=== PATIENT | male | born 1990 ===

== ENCOUNTER 2018-08-16 10:17 | Emergency (ER) | payer BC, OTHER ==
[2018-08-16 10:31] VITALS: BP 118/85
--- NOTE | 2018-08-16 11:13 | UC ---
Laceration HPI - HPI Summary HPI Summary: Patient is 27 year old gentleman, who present today to the urgent care with injury to his chin last night at 1 AM. He tripped on his bathroom and hit his chin on the floor and sustained a laceration wound. Last tetanus shot was March 2017. Bleeding was controlled and he denies any other symptoms - History Of Current Complaint Chief Complaint: UCLaceration Stated Complaint: CHIN INJURY Time Seen by Provider: 08/16/18 10:52 Hx Obtained From: Patient Pain Intensity: 4 - Allergies/Home Medications Allergies/Adverse Reactions: Allergies Allergy/AdvReac Type Severity Reaction Status Date / Time No Known Allergies Allergy Verified 08/16/18 10:31 PMH/Surg Hx/FS Hx/Imm Hx - Additional Past Medical History Additional PMH: No significant past medical history Previously Healthy: Yes - Surgical History Surgical History: None - Social History Alcohol Use: Daily Alcohol Amount: 1 or 2 beers Substance Use Type: None Smoking Status (MU): Former Smoker Review of Systems All Other Systems Reviewed And Are Negative: Yes Constitutional: Positive: Negative Skin: Positive: Other - Laceration wound to the right chin Eyes: Positive: Negative ENT: Positive: Negative Respiratory: Positive: Negative Cardiovascular: Positive: Negative Gastrointestinal: Positive: Negative Genitourinary: Positive: Negative Motor: Positive: Negative Neurovascular: Positive: Negative Musculoskeletal: Positive: Negative Neurological: Positive: Negative Psychological: Positive: Negative Is Patient Immunocompromised?: No Physical Exam - Summary Physical Exam Summary: Physical Exam: Const: Appears well. No signs of apparent distress present. Alert and oriented x 3. Musculo: Walks with a normal gait. Head/Face: Atraumatic, normocephalic on inspection. Eyes: EOMI and PERRLA in both eyes. Conjunctivae clear. No discharge noted ENT: Hearing normal, Respiratory: Respirations are unlabored. Lungs clear to auscultation bilaterally, no wheezing , rhonchi or rales noted . CVS: Regular rate and Rhythm, S1S2 normal , no murmurs identified. Extremities: Peripheral circulation is grossly normal. Pulses 2+ Abdomen : Soft non tender , nondistended , Bowel sounds present . No guarding , rebound tenderness or rigidity noted. Skin: chin: 1 inch long 2 mm deep, transverse linear laceration wound. No foreign body identified. No active bleeding or drainage Neuro: Cranial nerves II to XII intact, motor and sensory intact. DTR Intact bilaterally. Mood is normal. Affect is normal. Triage Information Reviewed: Yes Vital Signs: Initial Vital Signs Temp 98.2 F 08/16/18 10:26 Pulse 91 08/16/18 10:26 Resp 16 08/16/18 10:26 BP 118/85 08/16/18 10:26 Pulse Ox 98 08/16/18 10:26 Vital Signs Reviewed: Yes Images Head: 1 - 1 inch long transverse laceration Laceration Repair - Laceration Repair 1 Description: Linear Laceration Size After Repair: Length (cm) - 2 cm, Width (mm) - 3 mm, Depth (mm) - 2 mm Contamination/FB Removal: irrigated, no foreign body Type Injection: Local Anesthesia Used: 2.0% Lido Cleansing Completed Via Routine Prep: Yes Irrigation With Pressure Irrigation Device: Yes Closure Material: Sutures - 6 sutures applied .nylon , 5 - 0 , Closure Method: Single Layer - interrupted Suture Type: Nylon Laceration Course/Dx - Course/Dx Course Of Treatment: During the visit today, laceration wound was closed with 6 interrupted sutures using nylon 5-0 with appropriate closure and hemostasis. Since he injured it last night, plan to cover it with antibiotics. Keflex was prescribed to the pharmacy. He will return for suture removal in one week. . Patient expressed understanding . - Diagnosis Provider Diagnosis: Laceration Discharge - Sign-Out/Discharge Documenting (check all that apply): Patient Departure All imaging exams completed and their final reports reviewed: No Studies - Discharge Plan Condition: Stable Disposition: HOME Prescriptions: Cephalexin CAP* [Keflex CAP*] 500 mg PO BID 5 Days #10 cap Patient Education Materials: Care For Your Stitches (ED), Laceration (ED) Referrals: [facility] Vladimir JOSEPH [Primary Care Provider] - 1 Week Additional Instructions: Please start taking the medication as prescribed to the pharmacy . Care for your sutures Follow up in 1 week for suture removal Return to Urgent care / ER if symptoms get worse. - Billing Disposition and Condition Condition: STABLE Disposition: Home
[2018-08-16] MEDS ORDERED: Lidocaine 2% PF * 5 ML VIAL INJ ONE (11:19)
== END 2018-08-16 12:39 | disposition home or self-care (01) ==
LOC: UCEAST 10:17
DX: S01.81XA Laceration without foreign body of other part of head, initial encounter (principal); Z87.891 Personal history of nicotine dependence; W01.198A Fall on same level from slipping, tripping and stumbling with subsequent striking against other object, initial encounter; Y92.89 Other specified places as the place of occurrence of the external cause
CPT/HCPCS: 12011; 99202; G0463